=== PATIENT | female | born 1995 | race Caucasian/White ===

== ENCOUNTER 2020-07-11 16:40 | Observation (INO) | payer OTHER ==
[2020-07-11 17:40] VITALS: BP 113/71
== END 2020-07-11 18:40 | disposition home or self-care (01) ==
LOC: 4S 16:40
PROVIDERS: ADMIT Obstetrics & Gynecology; ATTEND Obstetrics & Gynecology
DX: O26.893 Other specified pregnancy related conditions, third trimester (principal); Z3A.31 31 weeks gestation of pregnancy
CPT/HCPCS: 96360; 99219

== ENCOUNTER 2020-08-12 14:05 | Observation (INO) | payer OTHER ==
[~2020-08-12] VITALS: Ht 160 cm; Wt 107.5 kg
[2020-08-12 14:52] VITALS: BP 110/68
[2020-08-12] MEDS ORDERED: PREN-217 PO (14:52)
[2020-08-13] MEDS ORDERED: ALBU8HFA IH (09:02)
== END 2020-08-12 16:00 | disposition home or self-care (01) ==
LOC: 4S 14:05
PROVIDERS: ADMIT Obstetrics & Gynecology; ATTEND Obstetrics & Gynecology
DX: O26.893 Other specified pregnancy related conditions, third trimester (principal); Z3A.36 36 weeks gestation of pregnancy
CPT/HCPCS: 59025; 99219

== ENCOUNTER 2020-08-13 08:40 | Observation (INO) | payer OTHER ==
[~2020-08-13] VITALS: Ht 157.5 cm; Wt 107.5 kg
[~2020-08-13 08:40] MED LIST: PREN-217 PO
[2020-08-13 09:02] VITALS: BP 109/65
[2020-08-13] MEDS ORDERED: ALBU8HFA IH (09:02)
== END 2020-08-13 11:30 | disposition home or self-care (01) ==
LOC: 4S 08:40
PROVIDERS: ADMIT Obstetrics & Gynecology; ATTEND Obstetrics & Gynecology
DX: O26.893 Other specified pregnancy related conditions, third trimester (principal); Z3A.36 36 weeks gestation of pregnancy
CPT/HCPCS: 59025; 76811; 96360; 96361; 99219

== ENCOUNTER 2020-08-16 14:15 | Observation (INO) | payer OTHER ==
[~2020-08-16] VITALS: Ht 160 cm; Wt 108.4 kg
[~2020-08-16 14:15] MED LIST changes: +ALBU8HFA IH
[2020-08-16 14:47] VITALS: BP 127/81
== END 2020-08-16 15:30 | disposition home or self-care (01) ==
LOC: 4S 14:15
PROVIDERS: ADMIT Obstetrics & Gynecology; ATTEND Obstetrics & Gynecology
DX: O36.5930 Maternal care for other known or suspected poor fetal growth, third trimester, not applicable or unspecified (principal); Z3A.36 36 weeks gestation of pregnancy
CPT/HCPCS: 59025; 76805; 99219

== ENCOUNTER 2020-08-19 14:15 | Observation (INO) | payer OTHER ==
[~2020-08-19] VITALS: Ht 157.5 cm; Wt 108.4 kg
[2020-08-19 14:47] VITALS: BP 117/72
== END 2020-08-19 16:05 | disposition home or self-care (01) ==
LOC: 4S 14:15
PROVIDERS: ADMIT Obstetrics & Gynecology; ATTEND Obstetrics & Gynecology
DX: O26.893 Other specified pregnancy related conditions, third trimester (principal); Z3A.37 37 weeks gestation of pregnancy
CPT/HCPCS: 59025; 76811; 99219

== ENCOUNTER 2020-08-23 07:00 | Inpatient (IN) | payer OTHER ==
[~2020-08-23] VITALS: Ht 160 cm; Wt 109.0 kg
[2020-08-23 07:27] VITALS: BP 132/79
[2020-08-23] MEDS ORDERED: RINGERS SOLUTION,LACTATED 1,000 ML IV PRN (07:49)
[2020-08-23] MEDS ORDERED: OXYTOCIN 30 UNITS/LACT RINGERS 500 ML IV ONE (07:49)
[2020-08-23] MEDS ORDERED: CITRIC ACID/SODIUM CITRATE 30 ML SOLUTION UDCUP PO PRN (08:00)
[2020-08-23] MEDS ORDERED: OXYGEN THERAPY IH SCH (08:00)
[2020-08-23] MEDS ORDERED: METHYLERGONOVINE MALEATE 0.2 MG/ML VIAL IM PRN (08:00)
[2020-08-23] MEDS ORDERED: METOCLOPRAMIDE HCL 5 MG/ML 2 ML VIAL IVP PRN (08:00)
[2020-08-23] MEDS ORDERED: DINOPROSTONE 10 MG VAGINAL SUPPOSITORY VG ONE (08:30)
[2020-08-23 08:37] LABS: COVID AG,FIA SOURCE NASOPHARYNGEAL
[2020-08-23 08:51] LABS: BASOPHILS % (AUTO) 0.5 % (0.0-2.0); EOSINOPHILS % (AUTO) 0.6 % (1.0-6.0); HEMATOCRIT 35.1 % (36-46); HEMOGLOBIN 11.7 g/dL (12.0-16.0); LYMPHOCYTES # (AUTO) 2.2 K/uL (1.0-4.8); LYMPHOCYTES % (AUTO) 17.3 % (22.0-44.0); MEAN CORPUSCULAR HEMOGLOBIN 26.1 pg (26.0-34.0); MEAN CORPUSCULAR HGB CONC 33.2 G/dL (31.0-37.0); MEAN CORPUSCULAR VOLUME 79 fL (80-100); MONOCYTES # (AUTO) 0.7 K/uL (0.1-1.0); MONOCYTES % (AUTO) 5.3 % (2.0-9.0); NEUTROPHILS # (AUTO) 9.5 K/uL (1.8-7.7); NEUTROPHILS % (AUTO) 76.3 % (40.0-70.0); PLATELET COUNT (AUTO)-OB 197 K/uL (150-450); RED BLOOD CELL COUNT(AUTO) 4.48 MIL/uL (4.00-5.20)
[2020-08-23] MEDS: RINGERS SOLUTION,LACTATED 1,000 ML IV SCH ×4 (09:22→22:36)
[2020-08-23] MEDS ORDERED: INFLUENZA VIRUS VACCINE QVS 2020-21 (6MO+)/PF 60 MCG/0.5 ML SYRINGE IM ONE (12:30)
[2020-08-23] MEDS ORDERED: -PHARMACY NOTE- MISC ONE (20:30)
[2020-08-23] MEDS ORDERED: ALBUTEROL SULFATE HFA 90 MCG/PUFF 8 GM INHALER IH PRN (20:30)
[2020-08-23] MEDS: FentaNYL CITRATE-PF 100 MCG/2 ML VIAL IVP PRN ×2 (21:31→21:36)
[2020-08-23] MEDS ORDERED: MISOPROSTOL 25 MCG TABLET PO ONE (22:30)
[2020-08-24] MEDS ORDERED: BUTORPHANOL TARTRATE 2 MG/ML VIAL IVP PRN (01:00)
[2020-08-24] MEDS ORDERED: AMPICILLIN SODIUM 2 GM/NS 100 ML IV ONE (03:00)
[2020-08-24] MEDS ORDERED: MISOPROSTOL 50 MCG TABLET PO ONE (03:00)
[2020-08-24] MEDS: RINGERS SOLUTION,LACTATED 1,000 ML IV SCH ×2 (04:53→11:06)
[2020-08-24] MEDS ORDERED: ROPIVACAINE HCL/PF 0.2% 100 ML ED ONE (08:58)
[2020-08-24] MEDS: AMPICILLIN SODIUM 1 GM/NS 50 ML IV SCH ×2 (09:23→13:21)
[2020-08-24] MEDS ORDERED: ROPIVACAINE HCL/PF 0.2% 100 ML ED PRN (09:24)
[2020-08-24] MEDS ORDERED: DiphenhydrAMINE HCL 50 MG/ML VIAL IVP PRN (09:30)
[2020-08-24] MEDS ORDERED: ONDANSETRON HCL 4 MG/2 ML VIAL IVP PRN (09:30)
[2020-08-24] MEDS ORDERED: NALBUPHINE HCL 10 MG/ML VIAL IVP PRN (09:30)
[2020-08-24] MEDS ORDERED: OXYTOCIN 30 UNITS/LACT RINGERS 500 ML IV PRN (10:23)
[2020-08-24] MEDS ORDERED: MINERAL OIL 30 ML UDCUP VG ONE (10:30)
[2020-08-24] MEDS ORDERED: ACETAMINOPHEN 325 MG TABLET PO PRN (13:15)
[2020-08-24] MEDS ORDERED: OXYTOCIN 30 UNITS/LACT RINGERS 500 ML IV ONE (16:26)
[2020-08-24] MEDS ORDERED: LANOLIN 7 GM OINTMENT TP PRN (16:30)
[2020-08-24] MEDS ORDERED: OxyCODONE HCL/ACETAMINOPHEN 5-325 MG TABLET PO PRN ×2 (16:30)
[2020-08-24] MEDS ORDERED: GLYCERIN/WITCH HAZEL LEAF 40 PADS JAR TP PRN (16:30)
[2020-08-24] MEDS ORDERED: BENZOCAINE 20%/MENTHOL 56 GM SPRAY CANISTER TP PRN (16:30)
[2020-08-24] MEDS ORDERED: LIDOCAINE/PF 1% 30 ML VIAL INJ PRN (16:30)
[2020-08-24] MEDS ORDERED: PNEUMOCOCCAL VACCINE POLYVALENT 0.5 ML VIAL [PPSV23] IM ONE (19:30)
[2020-08-24] MEDS: MAGNESIUM HYDROXIDE SUSPENSION 30 ML UDCUP PO PRN (21:07)
[2020-08-24] MEDS: IBUPROFEN 800 MG TABLET PO PRN (21:08)
[2020-08-24] MEDS ORDERED: MEASLES/MUMPS/RUBELLA VACCINE, LIVE 0.5 ML/VIAL SQ ONE (22:30)
[2020-08-25 06:47] LABS: BASOPHILS % (AUTO) 0.5 % (0.0-2.0); HEMATOCRIT 32.2 % (36-46); HEMOGLOBIN 10.5 g/dL (12.0-16.0); LYMPHOCYTES # (AUTO) 2.7 K/uL (1.0-4.8); LYMPHOCYTES % (AUTO) 20.4 % (22.0-44.0); MEAN CORPUSCULAR HEMOGLOBIN 25.8 pg (26.0-34.0); MEAN CORPUSCULAR HGB CONC 32.7 G/dL (31.0-37.0); MEAN CORPUSCULAR VOLUME 79 fL (80-100); MONOCYTES % (AUTO) 7.2 % (2.0-9.0); NEUTROPHILS # (AUTO) 9.4 K/uL (1.8-7.7); NEUTROPHILS % (AUTO) 70.9 % (40.0-70.0); PLATELET COUNT (AUTO)-OB 175 K/uL (150-450); RED BLOOD CELL COUNT(AUTO) 4.07 MIL/uL (4.00-5.20)
[2020-08-25] MEDS: MAGNESIUM HYDROXIDE SUSPENSION 30 ML UDCUP PO PRN (08:54)
[2020-08-25] MEDS: IBUPROFEN 800 MG TABLET PO PRN ×2 (08:54→16:57)
== END 2020-08-25 17:50 | disposition home or self-care (01) | DRG 560 ==
LOC: 4S 07:00 → PREOBSVTOIN 09-06 07:50
PROVIDERS: ADMIT Obstetrics & Gynecology; ATTEND Obstetrics & Gynecology
PROC: 10E0XZZ Delivery of Products of Conception, External Approach (ICD-10-PCS; principal; 2020-08-24)
PROC: 3E0P7VZ Introduction of Hormone into Female Reproductive, Via Natural or Artificial Opening (ICD-10-PCS; 2020-08-24)
PROC: 3E0R3BZ Introduction of Anesthetic Agent into Spinal Canal, Percutaneous Approach (ICD-10-PCS; 2020-08-24)
PROC: 00HU33Z Insertion of Infusion Device into Spinal Canal, Percutaneous Approach (ICD-10-PCS; 2020-08-24)
DX: O69.82X0 Labor and delivery complicated by other cord entanglement, without compression, not applicable or unspecified (principal); O99.824 Streptococcus B carrier state complicating childbirth; Z3A.38 38 weeks gestation of pregnancy; Z37.0 Single live birth; Z03.818 Encounter for observation for suspected exposure to other biological agents ruled out
CPT/HCPCS: 86592; 86762; 86850; 86900; 86901; 87340; 87426; 90686; 90707; 90732; J0290; J0595; J2405; J2590; J2795; J3010; J7120